=== PATIENT | female | born 1965 | race Caucasian/White ===

== ENCOUNTER 2017-04-29 09:40 | Emergency (ER) | payer BC ==
[2017-04-29] MEDS ORDERED: Aspirin 81 MG Tab.Chew PO ONE (09:52)
--- NOTE | 2017-04-29 09:52 | EDM.PDOC ---
ED HPI GENERAL MEDICAL PROBLEM - General Chief Complaint: Chest Pain Stated Complaint: CHEST PAIN, BACK PAIN Time Seen by Provider: 04/29/17 09:50 Source of Information: Reports: Patient, Old Records, RN History Limitations: Reports: No Limitations - History of Present Illness INITIAL COMMENTS - FREE TEXT/NARRATIVE: 51 yo female here for evaluation of some resolving upper chest and back pain. Says she got light-headed in the shower and had to lay down for a few minutes. Later had a large diarrhea stool. She then went to work and while sitting at her desk developed this upper chest and upper back tightness. Sx's now for just over an hour, although they are almost gone. She has mild nausea, no SOB or diaphoresis. No calf pain or swelling. Has a FHx of HTN, but not CAD. She has no personal hx of CAD. Her only med is a statin for elevated cholesterol. Onset: Today Onset Date: 04/29/17 Duration: Hour(s): (1), Improving Location: Reports: Chest, Back Quality: Reports: Dull Severity: Mild Improves with: Reports: Rest Worsens with: Reports: None Context: Reports: Other (? beginning of a viral illness due to the diarrhea she had this morning while still at home.) Associated Symptoms: Reports: Chest Pain, Nausea/Vomiting (mild nausea.). 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 Denies: Abdominal Pain, Black Stool, Bloody Stool, Difficulty Swallowing, Distension, Flatus, Hematemesis, Hematochezia, Melena, Vomiting : Reports: No Symptoms Musculoskeletal: Reports: No Symptoms Skin: Reports: No Symptoms Neurological: Reports: No Symptoms Psychiatric: Reports: No Symptoms ED EXAM, GENERAL - Physical Exam Exam: See Below Exam Limited By: No Limitations General Appearance: Alert, WD/WN, No Apparent Distress Eye Exam: Bilateral Eye: Normal Inspection Ears: Normal External Exam, Normal Canal, Hearing Grossly Normal, Normal TMs Ear Exam: Bilateral Ear: Auricle Normal Nose: Normal Inspection, Normal Mucosa, No Blood Throat/Mouth: Normal Inspection, Normal Lips, Normal Oropharynx, Normal Voice, No Airway Compromise Head: Atraumatic, Normocephalic Neck: Normal Inspection, Supple, Non-Tender Respiratory/Chest: No Respiratory Distress, Lungs Clear, Normal Breath Sounds, No Accessory Muscle Use, Chest Non-Tender Cardiovascular: Regular Rate, Rhythm, No Edema GI/Abdominal: Normal Bowel Sounds, Soft, Non-Tender, No Distention Back Exam: Normal Inspection. No: CVA Tenderness (R), CVA Tenderness (L) Extremities: Normal Inspection, Normal Range of Motion, Non-Tender, No Pedal Edema Neurological: Alert, Oriented, CN II-XII Intact, Normal Cognition, No Motor/ Sensory Deficits Psychiatric: Normal Affect, Normal Mood Skin Exam: Warm, Dry, Intact, Normal Color, No Rash EKG INTERPRETATION EKG Date: 04/29/17 Time: 09:40 Rhythm: NSR Rate (Beats/Min): 82 [place]: Normal P-Wave: Present QRS: Normal ST-T: Normal QT: Normal Comparison: NA - No Prior EKG Course - Vital Signs Text/Narrative:: Was given ASA 324 mg po, acetaminophen 1000 mg po, and Zofran ODT 4 mg SL- feeling better, dyscomfort now more abdominal/intestinal Last Recorded V/S: Last Vital Signs Temp 36.9 C 04/29/17 09:46 Pulse 84 04/29/17 09:46 Resp 14 04/29/17 09:46 BP 138/82 04/29/17 09:46 Pulse Ox 100 04/29/17 09:46 Orthostatic Blood Pressure [ 124/82 Standing] Orthostatic Blood Pressure [ 123/82 Sitting] Orthostatic Blood Pressure [ 129/84 Supine] - Orders/Labs/Meds Orders: Active Orders 24 hr Category Date Time Status Cardiac Monitoring [RC] .As Directed Care 04/29/17 09:50 Active EKG Documentation Completion [RC] ASDIRECTED Care 04/29/17 09:50 Active Orthostatic Vital Signs [RC] ASDIRECTED Care 04/29/17 09:50 Active EKG 12 Lead [EK] Routine Ther 04/29/17 09:50 Ordered Labs: Laboratory Tests 04/29/17 Range/Units 10:18 Troponin I < 0.017 (0.000-0.056) ng/mL Meds: Medications Discontinued Medications Generic Name Dose Route Start Last Admin Trade Name Freq PRN Reason Stop Dose Admin Acetaminophen 1,000 mg 04/29/17 10:07 04/29/17 10:18 Tylenol Extra Strength PO 04/29/17 10:08 1,000 mg ONETIME ONE Administration Aspirin 324 mg 04/29/17 09:52 04/29/17 10:18 Aspirin PO 04/29/17 09:53 324 mg ONETIME ONE Administration Ondansetron HCl 4 mg 04/29/17 10:07 04/29/17 10:18 Zofran Odt PO 04/29/17 10:08 4 mg ONETIME ONE Administration Departure - Departure Time of Disposition: 11:02 Disposition: Home, Self-Care 01 Condition: Good Clinical Impression: Viral gastroenteritis Referrals: PCP,None [Primary Care Provider] - Forms: ED Department Discharge - My Orders Last 24 Hours: My Active Orders 04/29/17 09:50 Cardiac Monitoring [RC] .As Directed EKG Documentation Completion [RC] ASDIRECTED Orthostatic Vital Signs [RC] ASDIRECTED EKG 12 Lead [EK] Routine - Assessment/Plan Last 24 Hours: My Active Orders 04/29/17 09:50 Cardiac Monitoring [RC] .As Directed EKG Documentation Completion [RC] ASDIRECTED Orthostatic Vital Signs [RC] ASDIRECTED EKG 12 Lead [EK] Routine
[2017-04-29] MEDS ORDERED: Acetaminophen 500 MG Tab PO ONE (10:07)
[2017-04-29] MEDS ORDERED: Ondansetron 4 MG Tab.DIS PO ONE (10:07)
== END 2017-04-29 11:35 | disposition home or self-care (01) ==
LOC: JP.ED 09:40
DX: A08.4 Viral intestinal infection, unspecified (principal)
CPT/HCPCS: 36415; 84484; 93005; 99285; A9270

== ENCOUNTER → 2017-06-21 | Day surgery (SDC) | payer BC ==
[~2017-06-21] MED LIST: Lactated Ringers 1,000 ML IV SCH; Midazolam 1 MG/ML 2 ML SDV ONE; Propofol 200 MG/20 ML SDV ONE; fentaNYL 100 MCG/2 ML SDV ONE
--- NOTE | 2017-06-21 10:58 | OR ---
DATE OF PROCEDURE: 06/21/2017 PROCEDURE: Colonoscopy. FINDINGS: Ascending colon polyp, approximately 5 mm, completely removed using cold biopsy forceps. PREOPERATIVE DIAGNOSIS: Family history of colorectal cancer. POSTOPERATIVE DIAGNOSIS: Family history of colorectal cancer. RISKS: Risks, benefits, alternatives, and limitations including, but not limited to infection, bleeding, and perforation were explained to the patient, and they wished to proceed. PROCEDURE IN DETAIL: The patient was placed in left lateral decubitus position. Digital rectal exam was performed without abnormality. The scope was introduced and advanced atraumatically to the ileocecal valve. The scope was brought back through the ascending, transverse, descending colon and retroflexed. In the ascending colon, the aforementioned polyp was identified and completely removed. No other abnormalities were noted. On retroflex, the patient had mild internal hemorrhoids and a hemorrhoidal tag externally. The patient tolerated the procedure well. Lino Strickland MD /[id number]
== END ==
LOC: JP.SDS 07:28
PROVIDERS: ATTEND Surgery
DX: Z12.11 Encounter for screening for malignant neoplasm of colon (principal); D12.2 Benign neoplasm of ascending colon; K64.8 Other hemorrhoids; K64.4 Residual hemorrhoidal skin tags; Z80.0 Family history of malignant neoplasm of digestive organs
CPT/HCPCS: 45380; 81025; J2250; J2704; J3010; J7120; 88305

== ENCOUNTER 2020-05-23 08:28 | Day surgery (SDC) | payer BC ==
[2020-05-23] MEDS ORDERED: Propofol 200 MG/20 ML SDV ONE (08:52)
[2020-05-23] MEDS ORDERED: Midazolam 1 MG/ML 2 ML SDV ONE (08:52)
[2020-05-23] MEDS ORDERED: fentaNYL 100 MCG/2 ML SDV ONE (08:52)
[2020-05-23] MEDS ORDERED: Sodium Chloride 0.9% 1,000 ML IV SCH (09:00)
--- NOTE | 2020-05-26 08:10 | OR ---
DATE OF PROCEDURE: 05/23/2020 SURGEON: Lino Strickland MD PROCEDURE: Colonoscopy. FINDINGS: Normal colonoscopy. COMPLICATIONS: None. FOUNDRY WORKER GENERAL: None. ANESTHESIA: MAC. PREOPERATIVE DIAGNOSES: Screening colonoscopy/family history of colorectal cancer. POSTOPERATIVE DIAGNOSES: Screening colonoscopy/family history of colorectal cancer. RISKS: Risks, benefits, alternatives, and limitations including but not limited to infection, bleeding, perforation, and false positives and false negatives were explained to the patient who wished to proceed. PROCEDURE IN DETAIL: The patient was placed in left lateral decubitus position. Digital rectal exam was performed without abnormality. Scope was introduced and advanced atraumatically to the ileocecal valve. A photo was taken. The scope was brought back to the ascending, transverse, and descending colon and retroflexed. No evidence of old or new blood. No masses. No polyps. No diverticulitis. No colitis. Prep was acceptable, approximately 90% of luminal surface could be seen. No abnormalities on retroflexion. The patient tolerated the procedure well. Lino Strickland MD /[id number]
== END 2020-05-23 11:05 | disposition home or self-care (01) ==
LOC: JP.SDS 08:28
PROVIDERS: ATTEND Surgery
DX: Z12.11 Encounter for screening for malignant neoplasm of colon (principal); Z80.0 Family history of malignant neoplasm of digestive organs
CPT/HCPCS: J2250; J2704; J3010; J7030